=== PATIENT | male | born 1930 | race African-American/Black ===

== ENCOUNTER 2016-11-28 04:58 | Emergency (ER) | payer MEDICARE, BC ==
[~2016-11-28] VITALS: Ht 177.8 cm; Wt 77.0 kg
[2016-11-28 05:30] VITALS: BP 196/110; PULSE 88; RESP 20; TEMP 98.1; O2SAT 100
--- NOTE | 2016-11-28 05:30 | PD ---
HPI Chief Complaint: can't urinate Time Seen by Provider: 05:03 Travel History International Travel<30 days: No Contact w/Intl Traveler<30days: No Traveled to known affect area: No History of Present Illness HPI The patient is an 86-year-old male that states she is not had any prostate problems except that 20 years ago he had some prostate surgery at [facility] in [facility]. He states that at 8 PM he could not urinate and felt bladder distention. He denies any fever. He no longer has a urologist. He denies any flank pain. PFSH Social History Tobacco Use: No Review of Systems Except as stated in HPI: all other systems reviewed are Neg Physical Exam Narrative GENERAL: Well-nourished, well-developed patient. SKIN: Warm and dry. HEAD: Normocephalic. EYES: No scleral icterus. No injection or drainage. NECK: Supple, trachea midline. No JVD or lymphadenopathy. CARDIOVASCULAR: Regular rate and rhythm without murmurs, gallops, or rubs. RESPIRATORY: Breath sounds equal bilaterally. No accessory muscle use. GASTROINTESTINAL: Abdomen soft, non-tender, nondistended. The bladder is distended however. MUSCULOSKELETAL: No cyanosis, or edema. BACK: Nontender without obvious deformity. No CVA tenderness. Data Data Orders Urinary Catheter Insert/Apply (11/28/16 05:03) Urinalysis - C+S If Indicated (11/28/16 05:21) [facility] Medical Decision Making Medical Screen Exam Complete: Yes Emergency Medical Condition: Yes Medical Record Reviewed: Yes Differential Diagnosis Prostatic urethral obstruction, urethral stricture, other urethral obstruction. Bladder atony Narrative Course A Cortes catheter was inserted and 700 cc of urine was obtained. The patient had considerable relief. He will be getting a leg bag and he needs to call urology later on today to set up an appointment. Diagnosis Primary Impression: Urinary retention Additional Instructions: As we discussed, it is necessary to call urology later on today to set up an appointment. The Cortes will be left in until they remove it. Med/Other Pt SpecificInfo: No Change to Meds Disposition: 01 DISCHARGE HOME Condition: Stable Javier Rosas MD Nov 28, 2016 05:30
[2016-11-28 05:37] LABS: GLUCOSE,URINE NEG (NEG); KETONE, URINE NEG (NEG); NITRITE,URINE NEG (NEG)
[2016-11-28 05:41] VITALS: BP 153/91; PULSE 80; RESP 20; O2SAT 96
[2016-11-28 05:44] LABS: BLOOD, URINE MOD (NEG)
[2016-11-28 05:45] LABS: METHOD OF COLLECTION CATH; URINE COLOR YELLOW (YELLW/STRAW)
[2016-11-28 05:46] LABS: SQUAMOUS EPITHELIAL CELL URINE 0-5 /hpf (0-5)
[2016-11-28 05:47] LABS: COMMENT (UR) CATH-CULT NOT IND; CULTURE IF INDICATED CATH CULTURE NOT IND; WBC, URINE 0-2 /hpf (0-5)
[2016-11-28 07:14] VITALS: BP 155/82
== END 2016-11-28 07:18 | disposition home or self-care (01) ==
LOC: PHED 04:58
DX: R33.9 Retention of urine, unspecified (principal)
CPT/HCPCS: 51702; 81001

== ENCOUNTER 2017-01-01 21:22 | Emergency (ER) | payer MEDICARE, BC ==
[~2017-01-01] VITALS: Ht 177.8 cm; Wt 80.5 kg
[2017-01-01 21:50] VITALS: BP 139/67; PULSE 96; RESP 18; TEMP 98.6; O2SAT 98
[2017-01-01 22:22] VITALS: BP 136/70; PULSE 84; RESP 18; O2SAT 98
--- NOTE | 2017-01-01 22:28 | PD ---
HPI Chief Complaint: Complaint Time Seen by Provider: 21:59 Travel History International Travel<30 days: No Contact w/Intl Traveler<30days: No Traveled to known affect area: No History of Present Illness HPI The patient is a 86-year-old [place] male who presents to the emergency department for hematuria. The patient states he's had 2 episodes of urinary retention in the last several months. The patient had a catheter placed in November which was subsequently removed. However, approximately one week ago the patient once again had urinary retention and had to have a Cortes catheter placed. The patient saw his urologist earlier today, Dr. Whitney, and had his Cortes catheter removed. The patient states he urinated earlier tonight and saw a few small blood clots. He now notes his urine is pink, however, was concerned about the blood. He is able to pass urine without difficulty, according to his report, and denies any abdominal pain or distention that he had with his previous obstructions. He denies any dysuria. He denies any fever , chills, or sweats. The patient states he is currently taking Flomax. [facility] Past Medical History Diminished Hearing: No Hypertension: Yes Tetanus Vaccination: Unknown Influenza Vaccination: No Social History Alcohol Use: No Tobacco Use: No Substance Use: No Allergies-Medications (Allergen,Severity, Reaction): Coded Allergies: No Known Allergies (Unverified , 01/01/17) Reported Meds & Prescriptions Reported Meds & Active Scripts Active No Active Prescriptions or Reported Medications Review of Systems Except as stated in HPI: all other systems reviewed are Neg General / Constitutional: No: Fever Gastrointestinal: No: Nausea, Vomiting, Abdominal Pain Genitourinary: Positive: Hematuria, No: Urgency, Frequency, Dysuria, Decreased Urinary Output, Hesitancy, Pelvic Pain Physical Exam Narrative GENERAL: Awake, alert, pleasant 86-year-old male who appears his stated age and is in no acute respiratory distress. SKIN: Warm and dry. HEAD: Atraumatic. Normocephalic. EYES: No injection or drainage. NECK: Trachea midline. No JVD. GASTROINTESTINAL: Abdomen soft, non-tender, nondistended. No suprapubic tenderness. Back: No CVA tenderness. MUSCULOSKELETAL: No obvious deformities. No clubbing. No cyanosis. No edema. NEUROLOGICAL: Awake and alert. No obvious cranial nerve deficits. Motor grossly within normal limits. Normal speech. PSYCHIATRIC: Appropriate mood and affect; insight and judgment normal. Data Data Last Documented VS Vital Signs Date Time Temp Pulse Resp B/P Pulse Ox O2 Delivery O2 Flow Rate FiO2 01/01/17 22:22 84 18 136/70 98 Room Air 01/01/17 21:50 98.6 Orders Urinalysis - C+S If Indicated (01/01/17 22:14) Labs Laboratory Tests Test 01/01/17 22:15 Urine Color PINK Urine Turbidity SLIGHT Urine pH 6.5 Urine Specific [place] 1.007 Urine Protein 30 mg/dL Urine Glucose (UA) NEG mg/dL Urine Ketones NEG mg/dL Urine Occult Blood LARGE Urine Nitrite NEG Urine Bilirubin NEG Urine Leukocyte Esterase SMALL Urine RBC 100-200 /hpf Urine WBC 6-8 /hpf Urine Squamous Epithelial 0-5 /hpf Cells Urine Bacteria NONE /hpf Microscopic Urinalysis Comment CULT NOT INDICATED MDM Medical Decision Making Medical Screen Exam Complete: Yes Emergency Medical Condition: Yes Medical Record Reviewed: Yes Interpretation(s) Laboratory Tests Test 01/01/17 22:15 Urine Color PINK Urine Turbidity SLIGHT Urine pH 6.5 Urine Specific [place] 1.007 Urine Protein 30 mg/dL Urine Glucose (UA) NEG mg/dL Urine Ketones NEG mg/dL Urine Occult Blood LARGE Urine Nitrite NEG Urine Bilirubin NEG Urine Leukocyte Esterase SMALL Urine RBC 100-200 /hpf Urine WBC 6-8 /hpf Urine Squamous Epithelial 0-5 /hpf Cells Urine Bacteria NONE /hpf Microscopic Urinalysis Comment CULT NOT INDICATED Differential Diagnosis Differential diagnosis includes urethral stricture, benign prostatic hypertrophy , bladder cancer, post catheter removal complication, UTI, hemorrhagic cystitis. Narrative Course The patient states he is able to pass urine without difficulty and denies any abdominal pain or distention. UA appeared pink, but no obvious clots, therefore , UA was sent to lab to rule out underlying infection. The patient was able to urinate in the emergency Department without difficulty. The patient's UA reveals on her due to 100 red blood cells, only 6 white cells, no bacteria, therefore, no antibiotics will be administered. The patient is advised to follow-up with urology. Return if symptoms worsen or progress. Diagnosis Primary Impression: Hematuria Patient Instructions: General Instructions Additional Instructions: Continue the Flomax. Follow-up with your urologist. Return if urinary retention symptoms return. Scripts No Active Prescriptions or Reported Meds Disposition: 01 DISCHARGE HOME Condition: Stable Bonilla,[place] Z. MD Jan 01, 2017 22:28
[2017-01-01 22:35] LABS: BLOOD, URINE LARGE (NEG); GLUCOSE,URINE NEG (NEG); KETONE, URINE NEG (NEG); NITRITE,URINE NEG (NEG); PH, URINE 6.5 (5.0-8.5)
[2017-01-01 22:42] LABS: URINE COLOR PINK (YELLW/STRAW)
[2017-01-01 22:43] LABS: COMMENT (UR) CULT NOT INDICATED; CULTURE IF INDICATED CULT NOT INDICATED; RBC, URINE 100-200 /hpf (0-3); SQUAMOUS EPITHELIAL CELL URINE 0-5 /hpf (0-5)
[2017-01-01 23:01] VITALS: BP 130/72; PULSE 78; RESP 18; O2SAT 97
== END 2017-01-01 23:08 | disposition home or self-care (01) ==
LOC: PHED 21:22
DX: R31.9 Hematuria, unspecified (principal); I10 Essential (primary) hypertension; Z87.448 Personal history of other diseases of urinary system; Z79.899 Other long term (current) drug therapy
CPT/HCPCS: 81001; 99283

== ENCOUNTER 2017-01-22 01:46 | Emergency (ER) | payer MEDICARE, BC ==
[~2017-01-22] VITALS: Ht 177.8 cm; Wt 79.0 kg
[2017-01-22 01:56] VITALS: BP 148/97; PULSE 87; RESP 18; TEMP 97.9; O2SAT 95
[2017-01-22] MEDS ORDERED: TAMS5CAP PO (02:19)
[2017-01-22] MEDS ORDERED: [UNRECOGNIZED DRUG - OTHER] (02:19)
[2017-01-22] MEDS ORDERED: [UNRECOGNIZED DRUG - OTHER] (02:19)
[2017-01-22 02:21] VITALS: BP 148/97; PULSE 87; RESP 20; TEMP 97.9; O2SAT 95
--- NOTE | 2017-01-22 02:54 | PD ---
HPI Chief Complaint: Complaint Time Seen by Provider: 02:47 Travel History International Travel<30 days: No Contact w/Intl Traveler<30days: No Traveled to known affect area: No History of Present Illness HPI The patient is an 86-year-old male that complains of dysuria, frequency and urgency today. The patient has a history of prostatic hypertrophy and is seen by Dr. Whitney for this. He had a Cortes catheter in from the 13 of last month until the of last month. The catheter was removed by Dr. Whitney on [facility] . [facility] Past Medical History Diminished Hearing: No Hypertension: Yes Tetanus Vaccination: Unknown Influenza Vaccination: No Social History Alcohol Use: No Tobacco Use: No Substance Use: No Allergies-Medications (Allergen,Severity, Reaction): Coded Allergies: No Known Allergies (Unverified , 01/22/17) Reported Meds & Prescriptions Reported Meds & Active Scripts Active Reported [hypertension meds] Flomax (Tamsulosin HCl) 0.4 Mg Cap 0.4 Mg PO HS Review of Systems Except as stated in HPI: all other systems reviewed are Neg Physical Exam Narrative GENERAL: Well-nourished, well-developed patient in moderate apparent distress with his urinary symptoms. His vital signs show blood pressure 148/97 but otherwise normal. SKIN: Warm and dry. HEAD: Normocephalic. EYES: No scleral icterus. No injection or drainage. NECK: Supple, trachea midline. No JVD or lymphadenopathy. CARDIOVASCULAR: Regular rate and rhythm without murmurs, gallops, or rubs. RESPIRATORY: Breath sounds equal bilaterally. No accessory muscle use. GASTROINTESTINAL: Abdomen soft, non-tender, nondistended. No guarding or rebound is present. There is slight suprapubic discomfort on deep palpation. MUSCULOSKELETAL: No cyanosis, or edema. BACK: Nontender without obvious deformity. No CVA tenderness. Data Data Last Documented VS Vital Signs Date Time Temp Pulse Resp B/P Pulse Ox O2 Delivery O2 Flow Rate FiO2 01/22/17 03:41 94 18 143/85 99 Room Air 01/22/17 02:21 97.9 Orders Urinalysis - C+S If Indicated (01/22/17 02:50) Urine Culture (01/22/17 02:53) Phenazopyridine (Pyridium) (01/22/17 04:00) Nitrofurantoin Monohyd Macrocr (Macrobid (01/22/17 04:00) Labs Laboratory Tests Test 01/22/17 02:53 Urine Color YELLOW Urine Turbidity SLIGHT Urine pH 6.0 Urine Specific [place] 1.012 Urine Protein 30 mg/dL Urine Glucose (UA) NEG mg/dL Urine Ketones TRACE mg/dL Urine Occult Blood LARGE Urine Nitrite NEG Urine Bilirubin NEG Urine Leukocyte Esterase MOD Urine RBC 20-24 /hpf Urine WBC 25-49 /hpf Urine WBC Clumps FEW Urine Squamous Epithelial 0-5 /hpf Cells Urine Amorphous Sediment SMALL Urine Bacteria OCC /hpf Urine Mucus OCC /lpf Microscopic Urinalysis Comment CULTURE INDICATED MDM Medical Decision Making Medical Screen Exam Complete: Yes Emergency Medical Condition: Yes Medical Record Reviewed: Yes Interpretation(s) The urine shows slight turbidity, trace ketones, large occult blood, moderate leukocyte esterase with 20-24 red cells and 25-49 white cells and few white cell clumping's and occasional bacteria and culture is indicated. Differential Diagnosis Urinary tract infectioncystitis, UTIpyelonephritis, urethritis Narrative Course The patient appears to have a cystitis. He will be given Macrobid and Pyridium. He needs to follow-up with his urologist. Diagnosis Primary Impression: Cystitis Additional Instructions: As we discussed, drink plenty of liquids and take the Pyridium 3 times a day and the antibiotic twice daily. The Pyridium turns your urine orange. Follow- up with your urologist later on this week. Med/Other Pt SpecificInfo: Prescription(s) given Scripts Phenazopyridine (Pyridium)200 Mg [id number] Mg PO Q8HR #30 TAB Ref 0 Prov:Javier Rosas MD 01/22/17 Nitrofurantoin Monohydrate Macrocrystals (Macrobid)100 Mg [id number] Mg PO BID 10 Days Ref 0 Prov:Javier Rosas MD 01/22/17 Disposition: 01 DISCHARGE HOME Condition: Stable Javier Rosas MD Jan 22, 2017 02:54
[2017-01-22 02:59] LABS: BLOOD, URINE LARGE (NEG); GLUCOSE,URINE NEG (NEG); KETONE, URINE TRACE mg/dL (NEG); NITRITE,URINE NEG (NEG)
[2017-01-22 03:11] LABS: URINE COLOR YELLOW (YELLW/STRAW)
[2017-01-22 03:12] LABS: MUCUS URINE OCC /lpf (OCC)
[2017-01-22 03:13] LABS: BACTERIA, URINE OCC /hpf; SQUAMOUS EPITHELIAL CELL URINE 0-5 /hpf (0-5)
[2017-01-22 03:14] LABS: COMMENT (UR) CULTURE INDICATED; CULTURE IF INDICATED CULTURE INDICATED
[2017-01-22 03:41] VITALS: BP 143/85; PULSE 94; RESP 18; O2SAT 99
[2017-01-22] MEDS ORDERED: MACR100C2 PO (03:58)
[2017-01-22] MEDS ORDERED: PYRI200T4 PO (03:58)
[2017-01-22] MEDS ORDERED: NITROFURANTOIN MONOHYD MACROCR 100 MG CAP PO ONE (04:00)
[2017-01-22] MEDS ORDERED: PHENAZOPYRIDINE HCL 200 MG TAB PO ONE (04:00)
== END 2017-01-22 04:39 | disposition home or self-care (01) ==
LOC: PHED 01:46
DX: N30.90 Cystitis, unspecified without hematuria (principal); B96.89 Other specified bacterial agents as the cause of diseases classified elsewhere
CPT/HCPCS: 51702; 81001; 87086